=== PATIENT | male | born 1980 | race Caucasian/White ===

== ENCOUNTER 2019-07-05 08:32 | Emergency (ER) | payer BC ==
[~2019-07-05] VITALS: Ht 172.7 cm; Wt 79.4 kg
[~2019-07-05 08:32] MED LIST: AMOXICILLIN 50500 MG PO; AUGMENTIN 875875 MG PO; CHERATUSSIN AC118 ML PO; CYCLOBENZAPRINE5 MG PO; DOXYCYCLINE 10100 MG PO; FLEXERIL PO; HYDROCODON-ACE1 EAC7 PO; HYDROCODONE-AP1 EAC6 PO; NAPROSYN500 MG PO; NOHOMEMEDICATIONS; NORCO 5-325 TA1 EACH PO; PERCOCET 5-3251 EACH PO; ROBAXIN 750 MG750 M1 PO; SULFACETAMIDE 115 M1 OP; TOBREX5 ML OP; ULTRAM 50MG TAB50 MG PO; VICODIN 5-5001 EACH PO; ZOFRAN ODT4 MG SUBLING
[2019-07-05] MEDS ORDERED: AUGMENTIN 875-1 EACH PO (08:40)
[2019-07-05] MEDS ORDERED: VENTOLIN HFA 1818 GM INH (08:55)
[2019-07-05] MEDS ORDERED: MEDROL DOSPAK21 TA1 PO (08:55)
[2019-07-05 09:00] VITALS: BP 132/89
== END 2019-07-05 09:00 | disposition home or self-care (01) ==
LOC: M.ERS 08:32
DX: J40 Bronchitis, not specified as acute or chronic (principal); F17.210 Nicotine dependence, cigarettes, uncomplicated

== ENCOUNTER 2019-08-10 09:34 | Emergency (ER) | payer OTHER ==
[~2019-08-10] VITALS: Ht 172.7 cm; Wt 81.7 kg
[~2019-08-10 09:34] MED LIST changes: +AUGMENTIN 875-1 EACH PO; +MEDROL DOSPAK21 TA1 PO; +VENTOLIN HFA 1818 GM INH
[2019-08-10 11:16] VITALS: BP 149/97
== END 2019-08-10 11:17 | disposition home or self-care (01) ==
LOC: M.ERS 09:34
DX: S16.1XXA Strain of muscle, fascia and tendon at neck level, initial encounter (principal); S20.211A Contusion of right front wall of thorax, initial encounter; M25.522 Pain in left elbow; F17.210 Nicotine dependence, cigarettes, uncomplicated; V89.2XXA Person injured in unspecified motor-vehicle accident, traffic, initial encounter; Y93.I9 Activity, other involving external motion; Y92.89 Other specified places as the place of occurrence of the external cause; Y99.8 Other external cause status

== ENCOUNTER 2021-06-28 17:04 | Emergency (ER) | payer BC ==
[~2021-06-28] VITALS: Ht 175.3 cm; Wt 86.2 kg
[2021-06-28 18:41] VITALS: BP 124/68
== END 2021-06-28 18:42 | disposition home or self-care (01) ==
LOC: M.ERS 17:04
DX: S61.211A Laceration without foreign body of left index finger without damage to nail, initial encounter (principal); F17.210 Nicotine dependence, cigarettes, uncomplicated; Z98.890 Other specified postprocedural states; W26.8XXA Contact with other sharp object(s), not elsewhere classified, initial encounter; Y93.89 Activity, other specified; Y92.89 Other specified places as the place of occurrence of the external cause; Y99.8 Other external cause status

== ENCOUNTER 2021-08-09 09:52 | Emergency (ER) | payer BC ==
[~2021-08-09] VITALS: Ht 175.3 cm; Wt 83.5 kg
[2021-08-09 10:59] LABS: INFLUENZA A ANTIGEN Negative (Negative); INFLUENZA B ANTIGEN Negative (Negative)
[2021-08-09 11:29] VITALS: BP 124/78
== END 2021-08-09 11:31 | disposition home or self-care (01) ==
LOC: M.ERS 09:52
PROVIDERS: Physician Assistant
DX: B34.9 Viral infection, unspecified (principal); Z20.822 Contact with and (suspected) exposure to COVID-19; F17.210 Nicotine dependence, cigarettes, uncomplicated